=== PATIENT | male | born 1995 | race African-American/Black ===

== ENCOUNTER 2017-04-08 15:37 | Emergency (ER) | payer SELFPAY ==
[~2017-04-08] VITALS: Ht 162.6 cm; Wt 105.0 kg
[~2017-04-08 15:37] MED LIST: IOHEXOL-300 100 ML BOTTLE ONE; SODIUM CHLORIDE 0.9% 10ML VIAL ONE
[2017-04-08] MEDS ORDERED: ONDANSETRON HCL 4MG/2ML VIAL IV STA (16:21)
[2017-04-08] MEDS ORDERED: MORPHINE SULFATE 4 MG/ML CPJ (NOT FOR IM USE) IV STA (16:21)
[2017-04-08] MEDS ORDERED: SODIUM CHLORIDE 0.9% 1,000 ML IV ONE (16:21)
[2017-04-08 17:02] LABS: BASOPHILS % 0.6 % (0.0-2.0); EOSINOPHILS % 1.3 % (0.0-5.0); HEMATOCRIT. 37.8 % (42.0-52.0); HEMOGLOBIN. 12.7 g/dL (14.0-18.0); LYMPHOCYTES % 24.3 % (20.0-50.0); MEAN CORPUSCULAR HEMOGLOBIN 27.3 pg (28.0-32.0); MEAN CORPUSCULAR VOLUME 81.4 fL (80.0-94.0); MEAN PLATELET VOLUME 8.2 fl (7.4-10.4); MONOCYTES % 8.5 % (2.0-8.0); NEUTROPHILS % 65.3 % (40.0-76.0); PLATELET 288 x1000/uL (130-400); RED BLOOD CELL COUNT 4.64 mill/uL (4.7-6.1); RED CELL DISTRIBUTION WIDTH 13.5 % (11.6-14.6)
[2017-04-08 17:06] LABS: CHLORIDE 106 mEq/L (98-107)
[2017-04-08 17:08] LABS: INR 1.1
[2017-04-08 17:11] LABS: CARBON DIOXIDE 28 mEq/L (21-32)
[2017-04-08 19:09] VITALS: BP 130/82
== END 2017-04-08 19:10 | disposition home or self-care (01) ==
LOC: ER 15:37
DX: S93.601A Unspecified sprain of right foot, initial encounter (principal); R10.13 Epigastric pain; R51 Headache; F12.10 Cannabis abuse, uncomplicated; D64.9 Anemia, unspecified; V44.5XXA Car driver injured in collision with heavy transport vehicle or bus in traffic accident, initial encounter; Y93.89 Activity, other specified; Y92.488 Other paved roadways as the place of occurrence of the external cause
CPT/HCPCS: 36415; 70450; 73630; 74177; 80053; 83690; 85025; 85610; 85730; 96361; 96374; 96375; 99285; A4216; J2270; J2405; Q9967; J7030